=== PATIENT | female | born 1945 | race Caucasian/White ===

== ENCOUNTER 2016-08-29 09:06 | Day surgery (SDC) | payer MEDICARE ==
[~2016-08-29 09:06] MED LIST: PHENYLEPHRINE 2.5% OPHTH 2 ML DROPS ONE
[2016-08-29] MEDS ORDERED: CYCLOPENTOLATE 1% OPHTH DROPS 2 ML OPTH ONE (09:25)
[2016-08-29] MEDS ORDERED: KETOROLAC 0.45% OPHTH DROPS OPTH ONE (09:25)
[2016-08-29] MEDS ORDERED: PROPARACAINE 0.5% OPHTH DROPS 15 ML OPTH ONE ×2 (09:25→09:47)
[2016-08-29] MEDS ORDERED: PHENYLEPHRINE 2.5% OPHTH 2 ML DROPS OPTH ONE (09:25)
[2016-08-29] MEDS ORDERED: LACTATED RINGERS 1,000 ML IV ONE (09:40)
[2016-08-29] MEDS ORDERED: CHONDR SULF/HYALURONATE SYRINGE IO ONE (09:47)
[2016-08-29] MEDS ORDERED: BSS/LIDOCAINE/EPINEPHRINE 1 ML SYRINGE IO ONE (09:47)
[2016-08-29] MEDS ORDERED: levoFLOXacin 0.5% OPHTH DROPS 5 ML OPTH ONE (09:47)
[2016-08-29] MEDS ORDERED: BRIMONIDINE 0.2% OPHTH DROPS 5 ML OPTH ONE (09:47)
[2016-08-29] MEDS ORDERED: TRIAMCIN/MOXIFLOX/VANCO 1 ML VIAL IO ONE (09:47)
[2016-08-29] MEDS ORDERED: EPINEPHrine 1 MG/ML AMP IVP ONE (09:47)
[2016-08-29] MEDS ORDERED: MIDAZOLAM 2 MG/2 ML VIAL IVP ONE (09:50)
[2016-08-29] MEDS ORDERED: LIDOCAINE-MPF 2% 5 ML VIAL IM ONE (09:50)
[2016-08-29] MEDS ORDERED: PROPOFOL 200 MG/20 ML VIAL IVP ONE (09:50)
== END 2016-08-29 09:07 | disposition home or self-care (01) ==
PROC: 08RK3JZ Replacement of Left Lens with Synthetic Substitute, Percutaneous Approach (ICD-10-PCS; principal; 2016-08-29 10:15)
DX: E11.36 Type 2 diabetes mellitus with diabetic cataract (principal); H25.812 Combined forms of age-related cataract, left eye; I10 Essential (primary) hypertension; E11.9 Type 2 diabetes mellitus without complications; M81.0 Age-related osteoporosis without current pathological fracture; Z91.040 Latex allergy status; Z83.3 Family history of diabetes mellitus; Z82.61 Family history of arthritis; Z80.9 Family history of malignant neoplasm, unspecified; Z82.49 Family history of ischemic heart disease and other diseases of the circulatory system
CPT/HCPCS: 66984; A9270; J7120; V2632

== ENCOUNTER 2016-09-13 15:30 | Outpatient (CLI) | payer MEDICARE | END 2016-09-13 15:31 | disposition home or self-care (01) | DX: M81.0 Age-related osteoporosis without current pathological fracture (principal); I10 Essential (primary) hypertension; F41.1 Generalized anxiety disorder ==

== ENCOUNTER 2017-10-31 15:28 | Outpatient (CLI) | payer MEDICARE ==
--- NOTE | 2017-10-31 16:52 | XRAY Preliminary Report ---
Exam: XR WRIST 4 VIEW LT IMPRESSION: 1. Moderate bony degenerative changes, grade 2 subluxation, and chronic synovitis at the first carpom etacarpal joint. 2. Mild chronic impaction injury involving the ulnar styloid process and the triquetrum. [facility] SITE ID: [id number]
--- NOTE | 2017-10-31 17:20 | XRAY Report ---
EXAM: LEFT WRIST RADIOGRAPHY EXAM DATE: 10/31/2017 03:45 PM. CLINICAL HISTORY: Recurrent pain base of the left thumb. COMPARISON: None. TECHNIQUE: 4 views. FINDINGS: Bones: Normal. No fractures or bone lesions. Joints: Marked narrowing of the first carpal metacarpal joint with mild uniform subcortical sclerosis. Mild e rosive changes involving the articular cortex of the greater multangular at this point. Small osteoph ytes off the base of the first metacarpal. Synovium is thickened with dystrophic calcifications. Grad e 2 subluxation base of the first metacarpal relative to the greater multangular. Focal subcortical sclerosis and slight osteophyte formation involving the ulnar styloid process. Assistant Professor Of Chemistry priscila erosive changes or impaction noted in the adjacent cortex of the triquetrum. Soft Tissues: Normal. No soft tissue swelling. IMPRESSION: 1. Moderate bony degenerative changes, grade 2 subluxation, and chronic synovitis at the first carpom etacarpal joint. 2. Mild chronic impaction injury involving the ulnar styloid process and the triquetrum. [facility] Referring Provider Line: [phone] SITE ID: [id number]
--- NOTE | 2017-10-31 17:30 | XRAY Preliminary Report ---
Exam: XR HAND 3 VIEW LT IMPRESSION: 1. Moderate degenerative changes, grade 2 subluxation and chronic synovitis first carpal metacarpal j oint. 2. Mild chronic impaction injury involving the ulnar styloid process and triquetrum. 3. Slight noninflammatory arthropathy involving the MCP and interphalangeal joints. [facility] SITE ID: [id number]
--- NOTE | 2017-10-31 18:11 | XRAY Report ---
EXAM: LEFT HAND RADIOGRAPHY EXAM DATE: 10/31/2017 03:46 PM. CLINICAL HISTORY: Recurrent pain base of the left thumb. COMPARISON: None. TECHNIQUE: 3 views. FINDINGS: Bones: Normal. No fractures or bone lesions. Joints: Marked narrowing first carpometacarpal joint, mild uniform subcortical sclerosis, grade 2 subluxation . Mild erosive changes of the articulating cortex greater multangular. Synovium is thickened with dys trophic calcifications. Small amount of subcortical sclerosis and osteophyte formation ulnar styloid process with similar anila nges adjacent cortex at the triquetrum. Mild uniform narrowing of the MCP and interphalangeal joints without bony reactive changes nor sublux ation. Soft Tissues: Normal. No soft tissue swelling. IMPRESSION: 1. Moderate degenerative changes, grade 2 subluxation, and chronic synovitis first carpometacarpal tg int. 2. Mild chronic impaction injury involving the ulnar styloid process and triquetrum. 3. Slight noninflammatory arthropathy involving the MCP and interphalangeal joints. [facility] Referring Provider Line: [phone] SITE ID: [id number]
== END 2017-10-31 15:29 | disposition home or self-care (01) ==
LOC: DI.S 15:28
PROVIDERS: ATTEND Registered Nurse
DX: M18.12 Unilateral primary osteoarthritis of first carpometacarpal joint, left hand (principal); S63.042A Subluxation of carpometacarpal joint of left thumb, initial encounter; S69.92XA Unspecified injury of left wrist, hand and finger(s), initial encounter; M19.042 Primary osteoarthritis, left hand

== ENCOUNTER 2017-11-03 13:21 | Outpatient (CLI) | payer MEDICARE | END 2017-11-03 13:22 | disposition home or self-care (01) | LOC: LAB.F 13:21 | PROVIDERS: ATTEND Registered Nurse | DX: I10 Essential (primary) hypertension (principal); M81.0 Age-related osteoporosis without current pathological fracture; Z85.3 Personal history of malignant neoplasm of breast | CPT/HCPCS: 36415; 80053; 82306; 85025 ==

== ENCOUNTER 2018-01-26 15:51 | Outpatient (CLI) | payer MEDICARE ==
--- NOTE | 2018-01-28 03:23 | XRAY Report ---
Procedure Date: 01/26/2018 Accession Number: [id number] / [id number] Procedure: XR - Chest 2 View X-Ray CPT Code: 77923 FULL RESULT: EXAM: CHEST RADIOGRAPHY EXAM DATE: 01/26/2018 04:26 PM. CLINICAL HISTORY: COUGH. COMPARISON: CHEST 2 VIEW PA/LAT 07/10/2015. TECHNIQUE: 2 views. FINDINGS: Lungs/Pleura: No focal opacities evident. No pleural effusion. No pneumothorax. Normal volumes. Mediastinum: Heart and mediastinal contours are unremarkable. Other: Stable postoperative changes. IMPRESSION: Normal 2-view chest radiography. [facility]
== END 2018-01-26 15:52 | disposition home or self-care (01) ==
LOC: DI 15:51
PROVIDERS: ATTEND Nurse Practitioner Family
DX: R05 Cough (principal)
CPT/HCPCS: 71046

== ENCOUNTER 2018-02-04 11:47 | Outpatient (CLI) | payer MEDICARE ==
[2018-02-04 17:44] LABS: BASOPHILS # (AUTO) 0.1 10^3/uL (0.0-0.1); BASOPHILS % (AUTO) 0.9 %; EOSINOPHILS # (AUTO) 0.2 10^3/uL (0.0-0.7); EOSINOPHILS % (AUTO) 2.8 %; HGB - HEMOGLOBIN 14.8 g/dL (12.0-16.0); LYMPHOCYTES # (AUTO) 1.5 10^3/uL (1.5-3.5); LYMPHOCYTES % (AUTO) 24.1 %; MEAN CORPUSCULAR HEMOGLOBIN 31.4 pg (27.0-31.0); MEAN CORPUSCULAR HGB CONC 33.8 g/dL (32.0-36.0); MEAN CORPUSCULAR VOLUME 92.9 fL (81.0-99.0); MEAN PLATELET VOLUME 8.6 fL (7.9-10.8); MONOCYTES # (AUTO) 0.3 10^3/uL (0.0-1.0); MONOCYTES % (AUTO) 5.3 %; NEUTROPHILS # (AUTO) 4.2 10^3/uL (1.5-6.6); NEUTROPHILS % (AUTO) 66.9 %; PLT - PLATELET COUNT 183 10^3/uL (130-450); RED BLOOD COUNT 4.72 10^6/uL (4.20-5.40); RED CELL DISTRIBUTION WIDTH 12.7 % (12.0-15.0); WHITE BLOOD COUNT 6.3 x10^3/uL (4.8-10.8)
[2018-02-04 18:06] LABS: ALBUMIN 3.7 g/dL (3.2-5.5); ALBUMIN/GLOBULIN RATIO 1.2 (1.0-2.2); BILIRUBIN,TOTAL 1.1 mg/dL (0.2-1.0); CALCIUM 9.5 mg/dL (8.5-10.3); CREATININE 0.9 mg/dL (0.4-1.0); TOTAL PROTEIN 6.7 g/dL (6.7-8.2)
== END 2018-02-04 11:48 | disposition home or self-care (01) ==
LOC: LAB.F 11:47
PROVIDERS: ATTEND Registered Nurse
DX: I10 Essential (primary) hypertension (principal); M81.0 Age-related osteoporosis without current pathological fracture
CPT/HCPCS: 36415; 80053; 82306; 85025

== ENCOUNTER 2019-07-16 13:53 | Outpatient (CLI) | payer MEDICARE ==
[2019-07-16 17:37] LABS: CALCIUM 9.9 mg/dL (8.5-10.3)
[2019-07-16 17:57] LABS: THYROID STIMULATING HORMONE 0.95 uIU/mL (0.34-5.60)
[2019-07-16 18:08] LABS: FOLATE 16.43 ng/mL (5.90 - >24.8)
== END 2019-07-16 13:54 | disposition home or self-care (01) ==
LOC: LAB.S 13:53
PROVIDERS: ATTEND Registered Nurse
DX: G60.9 Hereditary and idiopathic neuropathy, unspecified (principal); I10 Essential (primary) hypertension
CPT/HCPCS: 36415; 80048; 82607; 82746; 84443

== ENCOUNTER 2021-02-09 10:59 | Outpatient (CLI) | payer MEDICARE ==
--- NOTE | 2021-02-09 11:27 | XRAY Report ---
PROCEDURE: Hand 3 View LT INDICATIONS: INJURY OF LEFT HAND TECHNIQUE: 3 views of the hand(s) acquired. COMPARISON: 10/31/2017 and left hand radiograph FINDINGS: There is diffuse osseous demineralization. No fracture is identified. Overall moderate osteoarthritic changes most notable in the first carpometacarpal joint are similar t o the prior study. Mild uniform narrowing of the metacarpophalangeal and interphalangeal joints without subluxation or r eactive changes. Mild chronic impaction injury involving the ulnar styloid process and the triquetrum, similar to the prior study. IMPRESSION: No acute finding. Diffuse osteoarthritic changes, most notable in the first carpal metacarpal joint and to a lesser deg ree in the remaining metacarpophalangeal and interphalangeal joints. Reviewed by: Zaheer Estrada MD on 02/09/2021 11:26 AM PDT Approved by: Zaheer Estrada MD on 02/09/2021 11:26 AM PDT Station ID: [id number]
== END 2021-02-09 11:00 | disposition home or self-care (01) ==
LOC: DI 10:59
PROVIDERS: ATTEND Registered Nurse
DX: S69.92XA Unspecified injury of left wrist, hand and finger(s), initial encounter (principal); M19.042 Primary osteoarthritis, left hand; R73.9 Hyperglycemia, unspecified
CPT/HCPCS: 36415; 83036

== ENCOUNTER 2021-02-09 11:14 | Outpatient (CLI) | payer MEDICARE ==
[2021-02-09 12:28] LABS: ESTIMATED AVERAGE GLUCOSE 105 mg/dL (70-100); HEMOGLOBIN A1c% 5.3 % (4.27-6.07)
== END 2021-02-09 11:15 | disposition home or self-care (01) ==
LOC: LAB 11:14
PROVIDERS: ATTEND Registered Nurse
DX: R73.9 Hyperglycemia, unspecified (principal)
CPT/HCPCS: 36415; 83036

== ENCOUNTER 2021-03-28 14:34 | Outpatient (CLI) | payer MEDICARE ==
[2021-03-28 14:50] LABS: BASOPHILS # (AUTO) 0.1 10^3/uL (0.0-0.1); BASOPHILS % (AUTO) 0.8 %; EOSINOPHILS # (AUTO) 0.1 10^3/uL (0.0-0.7); EOSINOPHILS % (AUTO) 1.2 %; HCT - HEMATOCRIT 42.3 % (37.0-47.0); HGB - HEMOGLOBIN 14.1 g/dL (12.0-16.0); LYMPHOCYTES # (AUTO) 1.3 10^3/uL (1.5-3.5); LYMPHOCYTES % (AUTO) 18.3 %; MEAN CORPUSCULAR HEMOGLOBIN 31.1 pg (27.0-31.0); MEAN CORPUSCULAR HGB CONC 33.3 g/dL (32.0-36.0); MEAN CORPUSCULAR VOLUME 93.2 fL (81.0-99.0); MEAN PLATELET VOLUME 10.1 fL (7.9-10.8); MONOCYTES # (AUTO) 0.3 10^3/uL (0.0-1.0); MONOCYTES % (AUTO) 3.5 %; NEUTROPHILS # (AUTO) 5.5 10^3/uL (1.5-6.6); NEUTROPHILS % (AUTO) 75.9 %; PLT - PLATELET COUNT 194 10^3/uL (130-450); RED BLOOD COUNT 4.54 10^6/uL (4.20-5.40); RED CELL DISTRIBUTION WIDTH 11.9 % (12.0-15.0); WHITE BLOOD COUNT 7.2 x10^3/uL (4.8-10.8)
[2021-03-28 15:11] LABS: ALBUMIN/GLOBULIN RATIO 1.7 (1.0-2.2); BILIRUBIN,TOTAL 1.1 mg/dL (0.2-1.0); CALCIUM 9.6 mg/dL (8.5-10.3); POTASSIUM 3.7 mmol/L (3.5-5.0); TOTAL PROTEIN 6.4 g/dL (6.7-8.2)
[2021-03-28 20:11] LABS: ESTIMATED AVERAGE GLUCOSE 103 mg/dL (70-100); HEMOGLOBIN A1c% 5.2 % (4.27-6.07)
== END 2021-03-28 14:35 | disposition home or self-care (01) ==
LOC: LAB 14:34
PROVIDERS: ATTEND Registered Nurse
DX: N18.30 Chronic kidney disease, stage 3 unspecified (principal); M81.0 Age-related osteoporosis without current pathological fracture; R73.9 Hyperglycemia, unspecified
CPT/HCPCS: 36415; 80053; 82306; 83036; 85025

== ENCOUNTER 2021-05-08 12:52 | Outpatient (CLI) | payer MEDICARE ==
--- NOTE | 2021-05-08 14:40 | DEXA Report ---
PROCEDURE: Dexa Spine and/or Hip INDICATIONS: OSTEOPOROSIS TECHNIQUE: Dual energy x-ray absorptiometry (DXA) was performed on a [employer] System. Regions measur ed are the AP Spine, femoral neck, and if forearm due to high density in the spine. COMPARISON: None. FINDINGS: Lumbar Spine: Bone Mineral Density 1.2-3 g/cm/cm,T score 0.4. Left Hip: Bone Mineral Density 0.764 g/cm/cm,T score -1.9. Left Femoral Neck: Bone Mineral Density 0.676 g/cm/cm, T score -2.6. Left forearm: Bone Mineral Density 0.800 g/cm/cm, T score -0.9. (T score greater or equal to -1.0: NORMAL) (T score from -1.1 to -2.4: OSTEOPENIA) (T score less than or equal to -2.5 to: OSTEOPOROSIS) Impression: Osteoporosis. Patients with diagnosis of osteoporosis or osteopenia should have regular bone mineral density assess ment. For those eligible for Medicare, routine testing is allowed once every 2 years. Testing frequ ency can be increased for patients who have rapidly progressing disease or for those who are receivin g medical therapy to restore bone mass. Reviewed by: José Antonio Mathis MD on 05/08/2021 2:38 PM PDT Approved by: José Antonio Mathis MD on 05/08/2021 2:38 PM PDT Station ID: [id number]
== END 2021-05-08 12:53 | disposition home or self-care (01) ==
LOC: DI 12:52
PROVIDERS: ATTEND Registered Nurse
DX: M81.0 Age-related osteoporosis without current pathological fracture (principal)

== ENCOUNTER 2022-04-13 12:45 | Emergency (ER) | payer MEDICARE ==
[2022-04-13 13:12] LABS: BASOPHILS % (AUTO) 0.6 %; EOSINOPHILS # (AUTO) 0.1 10^3/uL (0.0-0.7); EOSINOPHILS % (AUTO) 1.8 %; HCT - HEMATOCRIT 41.3 % (37.0-47.0); LYMPHOCYTES # (AUTO) 1.4 10^3/uL (1.5-3.5); LYMPHOCYTES % (AUTO) 18.9 %; MEAN CORPUSCULAR HEMOGLOBIN 30.8 pg (27.0-31.0); MEAN CORPUSCULAR HGB CONC 33.9 g/dL (32.0-36.0); MEAN CORPUSCULAR VOLUME 90.8 fL (81.0-99.0); MEAN PLATELET VOLUME 9.9 fL (7.9-10.8); MONOCYTES # (AUTO) 0.5 10^3/uL (0.0-1.0); MONOCYTES % (AUTO) 7.1 %; NEUTROPHILS # (AUTO) 5.1 10^3/uL (1.5-6.6); NEUTROPHILS % (AUTO) 71.3 %; PLT - PLATELET COUNT 198 10^3/uL (130-450); RED BLOOD COUNT 4.55 10^6/uL (4.20-5.40); RED CELL DISTRIBUTION WIDTH 12.1 % (12.0-15.0); WHITE BLOOD COUNT 7.2 x10^3/uL (4.8-10.8)
[2022-04-13 13:27] LABS: ALBUMIN 4.2 g/dL (3.2-5.5); ALBUMIN/GLOBULIN RATIO 1.6 (1.0-2.2); BILIRUBIN,TOTAL 0.7 mg/dL (0.2-1.0); CALCIUM 9.8 mg/dL (8.5-10.3); POTASSIUM 3.7 mmol/L (3.5-5.0); TOTAL PROTEIN 6.8 g/dL (6.7-8.2)
--- NOTE | 2022-04-13 13:32 | XRAY Report ---
PROCEDURE: Chest 1 View X-Ray INDICATIONS: Chest pain TECHNIQUE: One view of the chest was acquired. COMPARISON: Chest x-ray 01/26/2018 FINDINGS: Surgical changes and devices: Clips are noted overlying the left base. Lungs and pleura: No pleural effusions or pneumothorax. Lungs are clear. Mediastinum: Mediastinal contours appear normal. Heart size is mildly enlarged. Bones and chest wall: No suspicious bony lesions. Overlying soft tissues appear unremarkable. IMPRESSION: No acute pulmonary process. Reviewed by: Mary Zhou MD on 04/13/2022 1:30 PM PDT Approved by: Mary Zhou MD on 04/13/2022 1:30 PM PDT Station ID: [id number]
--- NOTE | 2022-04-13 13:35 | ED Physician Documentation ---
History of Present Illness - Stated complaint Stated Complaint: LT ARM NUMB/FATIGUE - Chief complaint Chief Complaint: Cardiac - Additonal information Additional information: 76-year-old female presents emergency department for evaluation of chest and left arm discomfort. She reports that on or about 28 March she began noticing that she would have some chest pressure, chest discomfort some feelings of being lightheaded especially with exertion. Does nto occur with rest. The symptoms would not radiate. She tried not to think about it too much. However this morning about 345 she found that her left arm felt like there was a lot of pr essure in it. She could move it normally. She had no loss of sensation. She was not having chest pain at this time. She has had no facial droop or slurred speech. She did take an aspirin this morning when she had the left arm discomfort. She is unsure if it was a baby or adult aspirin Past medical history most significant for hypertension. No history of myocardial infarction or stroke. She is a non-smoker. Meds: Hydrochlorothiazide, enalapril, atenolol, Wellbutrin, amlodipine Review of Systems Constitutional: reports: Reviewed and negative Ears: reports: Reviewed and negative Cardiac: reports: Chest pain / pressure. denies: Palpitations, Pedal edema, Calf pain Respiratory: denies: Dyspnea, Cough GI: reports: Reviewed and negative : reports: Reviewed and negative Skin: reports: Reviewed and negative Neurologic: denies: Generalized weakness, Focal weakness, Numbness, Syncope, Seizure, Headache PD PAST MEDICAL HISTORY - Past Medical History Cardiovascular: Hypertension Respiratory: None Endocrine/Autoimmune: None GI: None : None HEENT: Chronic vision loss Psych: None Musculoskeletal: Osteoporosis Derm: None - Past Surgical History General: Appendectomy Ortho: Other HEENT: Tonsil/Adenoidectomy - Present Medications Home Medications: Ambulatory Orders Medication Instructions Recorded Confirmed Atenolol 50 mg PO DAILY 07/10/15 08/29/16 Enalapril [Vasotec] 20 mg PO DAILY 07/10/15 08/28/16 Triamterene/Hydrochlorothiazid 75 mg PO DAILY 07/10/15 08/28/16 [Triamterene-Hctz 75-50 mg Tab] buPROPion [Wellbutrin Sr] 150 mg PO BID 08/28/16 08/28/16 - Allergies Allergies/Adverse Reactions: Allergies Allergy/AdvReac Type Severity Reaction Status Date / Time acetaminophen [From Vicodin] Allergy Emesis Verified 04/13/22 12:56 hydrocodone bitartrate * Allergy Emesis Verified 04/13/22 12:56 [From Vicodin] ibuprofen Allergy Emesis Verified 04/13/22 12:56 latex Allergy Rash Verified 04/13/22 12:56 oxycodone HCl * Allergy Emesis Verified 04/13/22 12:56 [From Percocet] propoxyphene napsylate * Allergy Emesis Verified 04/13/22 12:56 [From Darvocet-N] - Social History Does the pt smoke?: No Smoking Status: Never smoker PD ED PE NORMAL - General General: Alert and oriented X 3, No acute distress - HEENT HEENT: PERRL - Cardiac Cardiac: RRR, No murmur, No gallop - Respiratory Respiratory: No respiratory distress, Clear bilaterally - Abdomen Abdomen: Normal bowel sounds, Soft, Non tender - Back Back: No CVA TTP, No spinal TTP - Derm Derm: Normal color, Warm and dry - Extremities Extremities: No deformity, No tenderness to palpate - Neuro Neuro: Alert and oriented X 3, student activities director 2-12 intact, No motor deficit, No sensory deficit, Normal speech Eye Opening: Spontaneous Motor: Obeys Commands Verbal: Oriented GCS Score: 15 - Psych Psych: Normal mood Results - Vitals Vitals: Vital Signs - 24 hr 04/13/22 12:51 Temperature 37 C Heart Rate 78 Respiratory 16 Rate Blood Pressure 148/67 H O2 Saturation 98 Oxygen O2 Source Room air - EKG (time done) 1314 Rate: Rate (enter#) (70) Rhythm: NSR [place]: Normal Intervals: Normal [place] QRS: Poor R wave progression Ischemia: Normal ST segments Compare to prior EKG: Old EKG unavailable Computer interpretation: Agree with computer - Labs Labs: Laboratory Tests 04/13/22 04/13/22 04/13/22 13:07 13:07 13:07 WBC 7.2 RBC 4.55 Hgb 14.0 Hct 41.3 MCV 90.8 MCH 30.8 MCHC 33.9 RDW 12.1 Plt Count 198 MPV 9.9 Neut # (Auto) 5.1 Lymph # (Auto) 1.4 L [place] # (Auto) 0.5 Eos # (Auto) 0.1 Baso # (Auto) 0.0 Absolute Nucleated RBC 0.00 Nucleated RBC % 0.0 Sodium 143 Potassium 3.7 Chloride 108 Carbon Dioxide 28 Anion Gap 7.0 BUN 32 H Creatinine 1.0 Estimated GFR (MDRD) 54 L Glucose 99 Calcium 9.8 Total Bilirubin 0.7 AST 18 ALT 19 Alkaline Phosphatase 57 Troponin I High Sens 6.1 Total Protein 6.8 Albumin 4.2 Globulin 2.6 Albumin/Globulin Ratio 1.6 Lipase 25 - Rads (name of study) cxr Radiology: Final report received (No acute cardiopulmonary process) PD MEDICAL DECISION MAKING - ED course Complexity details: reviewed old records, reviewed results, re-evaluated patient, considered differential, d/w patient ED course: 76-year-old female presents emergency department for evaluation of chest discomfort and pressure that seems to be mostly exertional. Symptoms began about March 28. She does not have symptoms at rest. She is not having any sh ortness of air. This early a.m. she began to have some left arm pressure. She does have a history of hypertension but has never been seen or evaluated by consulting sales executive. Patient's EKG today is nonischemic. Her blood count was without acute worrisome findings. Her biomarker/troponin were negative. She does have a heart score of 4. History is most consistent with stable angina. I did speak with Dr. Mast, the provider on-call for [facility], where patient receives her care. I discussed the case. I have requested an emergent referral for cardiac stress testing and/or echocardiogram. He reported that he would be able to assist with this process. He encourages the patient to get in contact with the clinic on Friday. Patient is discharged in stable condition. Otherwise emergent return precautions discussed Departure - Departure Disposition: Home, Self Care Clinical Impression: Stable angina Condition: Stable Record reviewed to determine appropriate education?: Yes Instructions: Angina Dc Follow-Up: Brigitte Velarde ARNP [Primary Care Provider] - Comments: Franklyn you are seen today in the emergency department because for a number of weeks you have been having some chest discomfort, chest pressure and now some left arm pressure. The symptoms seem to occur mostly with activity. This can be a sign of angina which is reduction of blood flow to the heart muscle with activity. Because of your age and history of hypertension you do need emergent referral to a consulting sales executive for evaluation of your heart function. Testing should include a stress test and/or an echocardiogram. I did get in contact with the provider on-call for [facility]. I did request they make an emergent referral. They have requested that you contact e office on Friday in order to help make this process continue. At any point you have worsening symptoms, have chest pain uncontrolled nausea vomiting or left arm discomfort then you are to return immediately to the ER
[2022-04-13 14:52] VITALS: BP 118/78
== END 2022-04-13 14:52 | disposition home or self-care (01) ==
LOC: ED 12:45
DX: I20.8 Other forms of angina pectoris (principal); I10 Essential (primary) hypertension
CPT/HCPCS: 36415; 80053; 83690; 84484; 85025; 93005; 99284

== ENCOUNTER 2023-04-16 08:00 | Outpatient (CLI) | payer MEDICARE ==
--- NOTE | 2023-04-16 13:05 | XRAY Report ---
PROCEDURE: Wrist 3 View LT INDICATIONS: CRUSHING INJURY TO LEFT WRIST TECHNIQUE: 3 views of the wrist were acquired. COMPARISON: None. FINDINGS: Bones: Calcification over dorsal aspect of carpal bone is seen concerning for dorsal triquetral frac ture. Clinical correlation is recommended. No other fracture or dislocation. Moderate to severe wrist joint osteoarthritic changes are seen most notably involving first CMC joint. No suspicious bony les ions. Soft tissues: No suspicious soft tissue calcifications or masses. IMPRESSION: Finding is concerning for acute fracture involving dorsal aspect of triquetrum with a displaced bony fragment seen on lateral view. 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 Reviewed by: José Antonio Hunt MD on 04/16/2023 1:03 PM PDT Approved by: José Antonio Hunt MD on 04/16/2023 1:03 PM PDT Station ID: [id number]
--- NOTE | 2023-04-16 13:07 | XRAY Report ---
PROCEDURE: Hand 3 View LT INDICATIONS: CRUSHING INJURY TO LEFT HAND TECHNIQUE: 3 views of the hand(s) acquired. COMPARISON: None. FINDINGS: Bones: No fractures or dislocations. No suspicious bony lesions. Soft tissues: No suspicious soft tissue calcifications or masses. IMPRESSION: No acute bony abnormality. If pain persists with conservative management, consider repeat radiographs in 10-14 days or cross-sectional imaging. Reviewed by: Arturo Olivarez on 04/16/2023 1:05 PM PDT Approved by: Arturo Olivarez on 04/16/2023 1:05 PM PDT Station ID: [id number]
== END 2023-04-16 23:59 | disposition home or self-care (01) ==
LOC: DI.S 08:00
PROVIDERS: ATTEND Physician Assistant Medical
DX: S67.92XA Crushing injury of unspecified part(s) of left wrist, hand and fingers, initial encounter (principal)

== ENCOUNTER 2023-05-24 13:08 | Outpatient (CLI) | payer MEDICARE | END 2023-05-24 13:09 | disposition home or self-care (01) | LOC: DI 13:08 | PROVIDERS: ATTEND Physician Assistant Medical | DX: Z53.9 Procedure and treatment not carried out, unspecified reason (principal) ==

== ENCOUNTER 2023-05-28 16:42 | Outpatient (CLI) | payer MEDICARE ==
--- NOTE | 2023-05-29 19:59 | XRAY Report ---
PROCEDURE: Wrist 3 View LT INDICATIONS: CLOSED FRACTURE OF TRIQUETRAL BONE (LFT) TECHNIQUE: 3 views of the wrist were acquired. COMPARISON: Left wrist radiograph on April 29, 2023.. FINDINGS: Bones: Mildly displaced triquetral fracture demonstrates increased sclerosis. No new fracture. Align ment is similar to the prior exam. 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 No suspicious bony lesions. Diffuse osseous demineralization. Soft tissues: No suspicious soft tissue calcifications or masses. IMPRESSION: 1.Mildly displaced triquetral fracture demonstrates interval osseous healing. Stable alignment. 2.Moderate to severe osteoarthritis, notably at the first CMC. Reviewed by: Kindra Cole MD on 05/29/2023 7:57 PM PDT Approved by: Kindra Cole MD on 05/29/2023 7:57 PM PDT Station ID: [id number]
== END 2023-05-28 16:43 | disposition home or self-care (01) ==
LOC: DI.S 16:42
PROVIDERS: ATTEND Registered Nurse
DX: S62.112D Displaced fracture of triquetrum [cuneiform] bone, left wrist, subsequent encounter for fracture with routine healing (principal); M19.032 Primary osteoarthritis, left wrist

== ENCOUNTER 2023-07-08 15:28 | Outpatient (CLI) | payer MEDICARE ==
--- NOTE | 2023-07-08 16:59 | XRAY Report ---
PROCEDURE: Wrist 3 View LT INDICATIONS: LFT WRIST FRACTURE TECHNIQUE: 3 views of the wrist were acquired. COMPARISON: 05/28/2023. FINDINGS: Bones: No significant change in triquetral fracture, mildly displaced. No new fractures. Severe dege nerative arthritis at the first carpometacarpal joint. Soft tissues: No suspicious soft tissue calcifications or masses. IMPRESSION: No significant change in appearance of triquetral fracture. Severe degenerative arthritis at the base of the thumb. Reviewed by: Haider Lepe MD on 07/08/2023 4:58 PM PST Approved by: Haider Lepe MD on 07/08/2023 4:58 PM PST Station ID: [id number]
== END 2023-07-08 15:29 | disposition home or self-care (01) ==
LOC: DI.S 15:28
PROVIDERS: ATTEND Registered Nurse
DX: S62.112D Displaced fracture of triquetrum [cuneiform] bone, left wrist, subsequent encounter for fracture with routine healing (principal); M18.12 Unilateral primary osteoarthritis of first carpometacarpal joint, left hand

== ENCOUNTER 2023-08-06 09:50 | Outpatient (CLI) | payer MEDICARE ==
--- NOTE | 2023-08-06 17:22 | DEXA Report ---
PROCEDURE: Dexa Spine and/or Hip INDICATIONS: OSTEOPOROSIS TECHNIQUE: Dual energy x-ray absorptiometry (DXA) was performed on a [employer] System. Regions measur ed are the AP Spine, femoral neck, and if needed forearm. COMPARISON: 04/30/2021 FINDINGS: Lumbar Spine (L2): Bone Mineral Density 1.086 g/cm/cm,T score -1.0. Low normal, change from previous -13.5%, significan t Left Femoral Neck: Bone Mineral Density 629 g/cm/cm, T score -2.9, osteoporosis. Left Hip: Bone Mineral Density 0.752 g/cm/cm,T score -2.0, osteopenia. Change from previous -1.6% Left Forearm: Bone Mineral Density 0.704 g/cm/cm, T score -2.0. Osteopenia, change from previous -12.0%, significan t (T score greater or equal to -1.0: NORMAL) (T score from -1.1 to -2.4: OSTEOPENIA) (T score less than or equal to -2.5 to: OSTEOPOROSIS) Impression: By WHO criteria, this patient has osteoporosis. Interval statistical decrease in bone minteral density of the lumbar spine. Interval statistical decr ease in bone minteral density of the forearm. Patients with diagnosis of osteoporosis or osteopenia should have regular bone mineral density assess ment. For those eligible for Medicare, routine testing is allowed once every 2 years. Testing frequ ency can be increased for patients who have rapidly progressing disease or for those who are receivin g medical therapy to restore bone mass. Reviewed by: Tessa Dugan MD on 08/06/2023 5:21 PM PST Approved by: Tessa Dugan MD on 08/06/2023 5:21 PM PST Station ID: [id number]
== END 2023-08-06 09:51 | disposition home or self-care (01) ==
LOC: DI 09:50
PROVIDERS: ATTEND Registered Nurse
DX: M81.0 Age-related osteoporosis without current pathological fracture (principal)

== ENCOUNTER 2023-09-11 16:25 | Outpatient (CLI) | payer MEDICARE ==
--- NOTE | 2023-09-11 19:37 | XRAY Report ---
PROCEDURE: Knee 4+V RT INDICATIONS: RT KNEE PAIN TECHNIQUE: 3 views of the knee was obtained. COMPARISON: None FINDINGS: Bones: No fractures or dislocations. No suspicious bony lesions. Soft tissues: No knee joint effusion. No suspicious soft tissue calcifications or masses. IMPRESSION: Unremarkable knee radiographs Reviewed by: Tony Sepulveda MD on 09/11/2023 6:36 PM [place] Approved by: Tony Sepulveda MD on 09/11/2023 6:36 PM [place] Station ID: [id number]
== END 2023-09-11 16:26 | disposition home or self-care (01) ==
LOC: DI.S 16:25
PROVIDERS: ATTEND Registered Nurse
DX: M25.561 Pain in right knee (principal)

== ENCOUNTER 2023-09-19 15:09 | Outpatient (CLI) | payer MEDICARE ==
--- NOTE | 2023-09-19 16:48 | CT Report ---
PROCEDURE: Lower Extremity RT WO INDICATIONS: PAIN IN RIGHT KNEE TECHNIQUE: Noncontrast 3-mm axial sections acquired from the distal tibial shaft to the talar dome, with coronal and sagittal reformats. For radiation dose reduction, the following was used: automated exposure c ontrol, adjustment of mA and/or kV according to patient size. COMPARISON: Right knee radiograph dated 09/11/2023. FINDINGS: Image quality: Excellent. Bones: No acute fracture or dislocation. Moderate tricompartmental osteoarthritis is seen with joint space narrowing, subchondral sclerosis and small marginal osteophyte formation more notably involvin g medial femoral tibial compartment. No suspicious bony lesions. Slight lateral subluxation of patell a is noted. Soft tissues: There is no significant joint effusion. No gross calcified intra-articular loose body is seen. No abnormal soft tissue calcifications. Distal quadriceps tendinosis at its superior patella insertion is seen with thickened tendon. The patella tendon is intact. No gross full-thickness ACL o r PCL rupture. No gross Badillo's cyst is seen. Impression: 1. Moderate tricompartmental osteoarthritis most notably in medial femoral tibial compartment. No fra cture or dislocation. Slight lateral subluxation of patella. 2. Distal quadriceps tendinosis at its superior patella insertion. No full-thickness right knee tendo n or ligament rupture. No abnormal soft tissue calcifications. 3. No significant joint effusion or calcified intra-articular loose bodies. Reviewed by: José Antonio Mathis MD on 09/19/2023 4:46 PM PST Approved by: José Antonio Mathis MD on 09/19/2023 4:46 PM PST Station ID: [id number]
== END 2023-09-19 15:10 | disposition home or self-care (01) ==
LOC: DI 15:09
PROVIDERS: ATTEND Registered Nurse
DX: M17.11 Unilateral primary osteoarthritis, right knee (principal); S83.011A Lateral subluxation of right patella, initial encounter; M67.863 Other specified disorders of tendon, right knee